=== PATIENT | male | born 1965 | race Caucasian/White ===

== ENCOUNTER → 2024-03-04 | Outpatient (CLI) | payer BC ==
[2024-03-04 13:40] VITALS: BP 163/76; PULSE 82; RESP 16; TEMP 97.8
--- NOTE | 2024-03-04 14:19 | P.SLEEP ---
History of Present Illness DATE: 03/04/2024 CONSULTATION/NEW PATIENT EVALUATION HISTORY OF PRESENT ILLNESS/SLEEP-WAKE EVALUATION: 58-year-old gentleman had b een evaluated in the sleep center for possible obstructive sleep apnea hypopnea syndrome. SLEEP SCHEDULE: Usually sleep schedule from 8:30 PM to 4:30 AM. FALLING ASLEEP: No problems with falling asleep. DURING SLEEP: Patient has loud snoring, witnessed episodes of stop breathing during the sleep by his . Patient wakes up from sleep up to 3 times with 2 episodes of nocturia no history of hypnogogical hallucinations, sleep paralysis, or cataplexy. DURING THE DAY/WAKE STATE: Patient feels sleepiness during the day. Vian sleepiness scale is significantly increased to 14. Patient usually does not take naps. Positive history of difficulties to pay attention, problems with memory, concentration, irritability. PAST MEDICAL HISTORY: Coronary artery disease, status post stent insertion, hypertension, hyperlipidemia, back problems. PAST SURGICAL HISTORY: Surgical treatment for colorectal cancer. MEDICATIONS: Please see below. SOCIAL HISTORY: Please see below. FAMILY HISTORY: Please see below. REVIEW OF SYSTEMS: Loud snoring, multiple awakenings from sleep, sleepiness during the day. No fevers. No double vision. No recent chest pain. No shortness of breath. No abdominal pain. No bleeding episodes. No blood in urine. No seizure episodes. PHYSICAL EXAMINATION: GENERAL: A pleasant patient without any distress. VITAL SIGNS: Please see below, weight 216 pounds, BMI 35.3. HEENT: PERRLA, EOMI. Evaluation of oropharynx showed tongue protrudes midline, low position of soft palate Mallampati 2, short distance between soft palate and posterior pharyngeal wall. NECK: Supple. No JVD. Thyroid is not palpable. 19 inches in circumference. LUNGS: Clear to percussion and to auscultation. Good air exchange. No wheezing or rhonchi. HEART: S1, S2 regular. ABDOMEN: Soft and nontender. Bowel sounds are present. No organomegaly appreciated. EXTREMITIES: No clubbing or cyanosis. TRUCK SUPERVISOR: Awake, alert, and oriented x3. Cranial nerves 2 to 7 intact. There is no fasciculation or atrophy noted. No focal deficits observed. ASSESSMENT: 1. Loud snoring, witnessed episodes of stop breathing during the sleep, multiple awakenings from sleep, sleepiness with high Vian Sleepiness Scale 14, wide neck 19 inches in circumference. Obstructive sleep apnea hypopnea syndrome. 2. Obesity, BMI 35.3. 3. Coronary artery disease, status post stent insertion. 4. Back problems. 5 hypertension. 6 . Hyperlipidemia. 7. Status post colorectal cancer surgical treatment. PLAN: 1. Polysomnography for evaluation of patient's breathing during sleep. 2. Following plan after reading sleep study. 3. Preferable position during sleep on the side. 4. No driving if patient feels any sleepiness. Patient is aware of civil and criminal liability for unsafe driving. 5. Sleep hygiene with regular sleep time for at least 7.5-8 hours. 6. Watching and losing weight. Thank you very much for referring this patient for consultation. Sincerely, Alejandro Corona MD, PhD, FAASM. Diplomat of [employer], Sleep Medicine Board by [employer] Manager [employer] [facility] cc: Gulshan Durant DO Past Medical History Past Medical History: Coronary Artery Disease (CAD), Cancer, Hyperlipidemia, Hypertension Additional Past Medical History / Comment(s): colon cancer 15 years ago, snoring, heart attack 2016? History of Any Multi-Drug Resistant Organisms: None Reported Additional Past Surgical History / Comment(s): colon surgery for CA Past Anesthesia/Blood Transfusion Reactions: No Reported Reaction Past Psychological History: No Psychological Hx Reported Smoking Status: Current every day smoker Past Alcohol Use History: Rare Past Drug Use History: None Reported - Past Family History Father Family Medical History: Hypertension Additional Family Medical History / Comment(s): snoring Mother Family Medical History: Coronary Artery Disease (CAD) Additional Family Medical History / Comment(s): lung Medications and Allergies Home Medications Medication Instructions Recorded Confirmed Type Aspirin EC [Ecotrin Low Dose] 81 mg PO DAILY 03/04/24 03/04/24 History Atorvastatin [Lipitor] 80 mg PO DAILY 03/04/24 03/04/24 History Ezetimibe [Zetia] 10 mg PO DAILY 03/04/24 03/04/24 History Lisinopril-Hctz 10-12.5 mg See Rx Instructions .ROUTE .COMPLEX 03/04/24 03/04/24 History [Zestoretic 10-12.5] carvediloL [Coreg] 3.125 mg PO BID 03/04/24 03/04/24 History Physical Exam Vitals: Vital Signs Temp Pulse Resp BP Pulse Ox 03/04/24 13:39 97.8 F 82 16 163/76 95 Intake and Output 03/03/24 03/04/24 03/04/24 22:59 06:59 14:59 Other: Weight 97.976 kg Sleep Note - Sleep Data ESS Total: 14 - Sleep Note Sleep Note: Temperature: 97.8 F Pulse Rate: 82 Respiratory Rate: 16 Blood Pressure: 163/76 SpO2: 95 Height: 5 ft 5.5 in Weight: 97.976 kg BMI: Neck Circumference: 19
== END ==
LOC: 3 N SLEEP 13:14
PROVIDERS: ATTEND Internal Medicine
DX: R06.83 Snoring (principal); R40.0 Somnolence; E66.9 Obesity, unspecified; I25.10 Atherosclerotic heart disease of native coronary artery without angina pectoris; I10 Essential (primary) hypertension; E78.5 Hyperlipidemia, unspecified; Z85.038 Personal history of other malignant neoplasm of large intestine; Z68.35 Body mass index [BMI] 35.0-35.9, adult; Z95.5 Presence of coronary angioplasty implant and graft
CPT/HCPCS: 99202